=== PATIENT | male | born 1990 | race African-American/Black ===

== ENCOUNTER 2020-12-03 11:41 | Emergency (ER) | payer OTHER, MEDICAID ==
[~2020-12-03] VITALS: Ht 182.9 cm; Wt 97.5 kg
[2020-12-03 11:45] VITALS: BP_SYST 131
--- NOTE | 2020-12-03 11:45 | NUR ---
Pt to bed 3 for evaluation. Report given to JACOBY Stephens who will assume care.
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
[2020-12-03 12:15] VITALS: BP_SYST 128
[2020-12-03] MEDS ORDERED: MORPHINE 4 MG INJ. 4 MG/ML VIAL IM ONE (12:30)
--- NOTE | 2020-12-03 12:47 | NUR ---
DR FELTON IN TO ASSESS
[2020-12-03 13:07] LABS: HEMATOCRIT 41.8 % (36-54); HEMOGLOBIN 14.1 g/dL (14.0-18.0); MEAN CORPUSCULAR HEMOGLOBIN 31 pg (27-31); MEAN CORPUSCULAR HGB CONC 34 % (32-36); MEAN CORPUSCULAR VOLUME 92 fL (79.0-98.0); PLATELET COUNT (AUTO) 195 K/uL (130-430); RED BLOOD CELL COUNT(AUTO) 4.53 MIL/uL (4.2-6.2); RED CELL DISTRIBUTION WIDTH 13.5 % (9.0-15.0); WHITE BLOOD COUNT (AUTO) 6.6 K/uL (4.8-10.8)
--- NOTE | 2020-12-03 14:00 | NUR ---
BACK FROM CT. NO CHANGE IN MENTATION. STEADY GAIT
--- NOTE | 2020-12-03 15:27 | NUR ---
UP AMBULATING STEADY , NO DYSPNEA, C/O OF INCREASED PAIN/DR ROSS AWARE
[2020-12-03 15:37] LABS: ANION GAP 8 (5-15); CALCIUM 8.9 mg/dL (8.4-11.0); CHLORIDE 104 mmol/L (98-107); CREATININE 1.12 mg/dL (0.55-1.30); GLUCOSE 94 mg/dL (70-99); POTASSIUM 4.1 mmol/L (3.5-5.1); SODIUM SERUM 139 mmol/L (136-145); UREA NITROGEN, BLOOD 14 mg/dL (8-21)
[2020-12-03 15:46] LABS: ALANINE AMINOTRANSFERASE 21 U/L (12-78); ALBUMIN 3.6 g/dL (3.4-4.8); ASPARTATE AMINOTRANSFERASE 18 U/L (10-37); TOTAL BILIRUBIN 0.3 mg/dL (0.0-1.0)
--- NOTE | 2020-12-03 16:10 | NUR ---
PT CAME UP TO NURSES STATION AND STATES HE WOULD LIKE TO LEAVE. PT STATES THAT HE WAITED TOO LONG AND WOULD LIKE TO LEAVE. PT GIVEN AMA PAPERWORK AND PT SIGNED OUT AMA. DR ROSS AWARE.
[2020-12-03 16:22] LABS: GFR AFRICAN AMERICAN 99 mL/min (>90)
== END 2020-12-03 16:10 | disposition left against medical advice (07) ==
LOC: SED 11:41
DX: S39.91XA Unspecified injury of abdomen, initial encounter (principal); M54.50 Low back pain, unspecified; V49.59XA Passenger injured in collision with other motor vehicles in traffic accident, initial encounter; Y93.89 Activity, other specified; Y92.89 Other specified places as the place of occurrence of the external cause; Y99.8 Other external cause status
CPT/HCPCS: 36415; 71260; 74177; 76376; 80053; 83051; 84484; 85014; 85048; 85049; 85610; 86886; 86900; 86901; 96372; 99285; J2270; Q9967

== ENCOUNTER 2020-12-05 17:12 | Emergency (ER) | payer OTHER, MEDICAID ==
[~2020-12-05] VITALS: Ht 182.9 cm; Wt 99.8 kg
[2020-12-05 17:20] VITALS: BP_SYST 147
--- NOTE | 2020-12-05 17:40 | NUR ---
Patient to ER bed 03 to gown for evaluation. Side rails up.
--- NOTE | 2020-12-05 17:45 | NUR ---
pt. bib with c/o abd pain 12/06 and N/V, pt was here in Er yesterday for abd pain left AMA and said pain increased when he left and started with N/V
--- NOTE | 2020-12-05 17:46 | NUR ---
ER at bedside examining patient.
[2020-12-05] MEDS ORDERED: NACL 0.9% 1,000 ML IV ONE ×2 (18:15→23:00)
[2020-12-05] MEDS ORDERED: PANTOPRAZOLE SODIUM 40 MG/VIAL (PROTONIX) IVP ONE (18:15)
[2020-12-05] MEDS ORDERED: ONDANSETRON HCL 4 MG/2 ML VIAL IVP ONE (18:15)
[2020-12-05] MEDS ORDERED: MORPHINE 4 MG INJ. 4 MG/ML VIAL IVP ONE ×2 (18:15→18:45)
[2020-12-05] MEDS ORDERED: ONDANSETRON HCL 4 MG/2 ML VIAL ONE (18:22)
[2020-12-05] MEDS ORDERED: MORPHINE 4 MG INJ. 4 MG/ML VIAL ONE (18:23)
[2020-12-05] MEDS ORDERED: PANTOPRAZOLE SODIUM 40 MG/VIAL (PROTONIX) ONE (18:31)
--- NOTE | 2020-12-05 18:36 | NUR ---
Pt. given Morphine for pain states pain decreases from 10 to [address] Pittman notified
[2020-12-05] MEDS ORDERED: DIPHENHYDRAMINE INJ 50 MG/ML VIAL IVP ONE (18:45)
[2020-12-05 18:56] LABS: BASOPHILS % (AUTO) 0.1 % (0.0-2.0); CALCIUM 9.9 mg/dL (8.4-11.0); CREATININE 1.29 mg/dL (0.55-1.30); HEMOGLOBIN 15.6 g/dL (14.0-18.0); LYMPHOCYTES # (AUTO) 0.6 K/uL (1.0-5.5); MEAN CORPUSCULAR HEMOGLOBIN 32 pg (27-31); MEAN CORPUSCULAR HGB CONC 35 % (32-36); MEAN CORPUSCULAR VOLUME 91 fL (79.0-98.0); MONOCYTES # (AUTO) 0.6 K/uL (0.0-1.0); MONOCYTES % (AUTO) 3.4 % (1.7-9.3); NEUTROPHILS # (AUTO) 17.7 K/uL (1.8-7.7); NEUTROPHILS % (AUTO) 93.5 % (40.0-70.0); PLATELET COUNT (AUTO) 233 K/uL (130-430); POTASSIUM 4.2 mmol/L (3.5-5.1); RED BLOOD CELL COUNT(AUTO) 4.92 MIL/uL (4.2-6.2); RED CELL DISTRIBUTION WIDTH 13.2 % (9.0-15.0); WHITE BLOOD COUNT (AUTO) 18.9 K/uL (4.8-10.8)
[2020-12-05 19:01] LABS: ALBUMIN 4.4 g/dL (3.4-4.8); TOTAL BILIRUBIN 0.7 mg/dL (0.0-1.0)
--- NOTE | 2020-12-05 19:05 | NUR ---
Pt. sleeping post second dose of Morphine and Benadryl
--- NOTE | 2020-12-05 19:30 | NUR ---
ASSUMED CARE OF PT FROM SATHYA DOZIER
[2020-12-05 21:54] LABS: BILIRUBIN,URINE NEGATIVE (NEGATIVE); BLOOD, URINE NEGATIVE (NEGATIVE); COLOR,URINE YELLOW (YELLOW); GLUCOSE,URINE NEGATIVE (NEGATIVE); KETONES,URINE 2+ (NEGATIVE); LEUKOCYTE ESTERASE ,URINE NEGATIVE (NEGATIVE); NITRITE, URINE NEGATIVE (NEGATIVE); PH,URINE 7.5 (5.0-8.0); PROTEIN URINE NEGATIVE (NEGATIVE); UROBILINOGEN,URINE 0.2 (0.2-1.0)
[2020-12-05] MEDS ORDERED: LORazepam 2 MG/ML VIAL IVP ONE (22:15)
[2020-12-05] MEDS ORDERED: PROCHLORPERAZINE EDISYLATE 10 MG/2 ML VIAL IVP ONE (22:15)
--- NOTE | 2020-12-05 23:00 | NUR ---
PT COMPLAINING OF MORE PAIN AND DISCOMFORT. VERY AGITATED AND ASKING FOR MORE MEDICATIONS. DR ROSS AWARE
[2020-12-05 23:12] LABS: CLARITY/URINE HAZY (CLEAR)
[2020-12-05 23:17] LABS: BACTERIA,URINE FEW /HPF (None Seen); MUCUS,URINE 2+ /LPF (None Seen); RBC,URINE 0-3 /HPF (0-3); WBC,URINE 0-3 /HPF (0-3)
--- NOTE | 2020-12-06 00:19 | NUR ---
PT IS ASLEEP AT THIS TIME. NO SIGNS OF DISTRESS NOTED
[2020-12-06 01:49] LABS: LYMPHOCYTES # (AUTO) 1.3 K/uL (1.0-5.5)
[2020-12-06 01:53] LABS: BASOPHILS % (AUTO) 0.2 % (0.0-2.0); HEMATOCRIT 42.9 % (36-54); HEMOGLOBIN 14.2 g/dL (14.0-18.0); MEAN CORPUSCULAR HEMOGLOBIN 31 pg (27-31); MEAN CORPUSCULAR HGB CONC 33 % (32-36); MEAN CORPUSCULAR VOLUME 93 fL (79.0-98.0); MONOCYTES # (AUTO) 0.8 K/uL (0.0-1.0); MONOCYTES % (AUTO) 4.5 % (1.7-9.3); NEUTROPHILS # (AUTO) 15.8 K/uL (1.8-7.7); NEUTROPHILS % (AUTO) 88.3 % (40.0-70.0); PLATELET COUNT (AUTO) 231 K/uL (130-430); RED BLOOD CELL COUNT(AUTO) 4.59 MIL/uL (4.2-6.2); RED CELL DISTRIBUTION WIDTH 13.5 % (9.0-15.0); WHITE BLOOD COUNT (AUTO) 17.9 K/uL (4.8-10.8)
[2020-12-06 01:53] LABS: BARBITURATE, URINE NEGATIVE (NEG <=200); BENZODIAZEPINE, URINE NEGATIVE (NEG <=150); CANNABINOID, URINE POSITIVE (NEG <=50); COCAINE, URINE NEGATIVE (NEG <=150); METHAMPHETAMINES SCREEN,URINE NEGATIVE (NEG <=500); OPIATE, URINE POSITIVE (NEG <=100); PHENCYCLIDINE SCREEN,URINE NEGATIVE (NEG <=25); UR TRICYCLIC ANTIDEPRESSANTS NEGATIVE (NEG <=300); URINE AMPHETAMINE NEGATIVE (NEG <=500); URINE METHADONE NEGATIVE (NEG <=200); URINE OXYCODONE SCREEN NEGATIVE (NEG <=100); URINE PROPOXYPHENE SCREEN NEGATIVE (NEG <=300)
[2020-12-06] MEDS ORDERED: PHE25 PO (02:39)
[2020-12-06] MEDS ORDERED: TRAM50TA PO (02:39)
[2020-12-06] MEDS ORDERED: PROM25SU57 RC (02:39)
[2020-12-06] MEDS ORDERED: PANT20TA2 PO (02:39)
--- NOTE | 2020-12-06 03:08 | NUR ---
Patient given written and verbal discharge instructions and verbalizes understanding. ER MD discussed with patient the results and treatment provided. Patient in stable condition. ID arm band removed. IV catheter removed intact and dressing applied, no active bleeding. Rx of PROTONIX, PHENERGAN, TRAMADOL given. Patient educated on pain management and to follow up with PMD. Pain Scale 2/10. Opportunity for questions provided and answered. Medication side effect fact sheet provided.
[2020-12-06 03:09] VITALS: BP_SYST 115
== END 2020-12-06 03:08 | disposition home or self-care (01) ==
LOC: SED 17:12
DX: K29.70 Gastritis, unspecified, without bleeding (principal); R10.10 Upper abdominal pain, unspecified; Z79.899 Other long term (current) drug therapy
CPT/HCPCS: 36415; 71045; 80053; 80307; 81000; 83690; 85025; 96361; 96374; 96375; 99285; C9113; G0482; J0780; J1200; J2060; J2270; J2405; J7030